=== PATIENT | female | born 1985 | race Caucasian/White ===

== ENCOUNTER 2020-09-07 08:58 | Day surgery (SDC) | payer OTHER ==
[2020-09-07] MEDS ORDERED: FERRIC CARBOXYMALTOSE 750 MG in SODIUM CHLORIDE 250 ML IVPB ONE (10:30)
== END 2020-09-07 14:39 | disposition home or self-care (01) ==
LOC: FINFUSION 08:58 → FM/S 09:01 → FINFUSION 14:39
PROVIDERS: ATTEND Physician Assistant Surgical
DX: Z53.8 Procedure and treatment not carried out for other reasons (principal)
CPT/HCPCS: 84703